=== PATIENT | male | born 1945 | race Caucasian/White ===

== ENCOUNTER → 2016-06-20 | Outpatient (REF) ==
[~2016-06-20] MED LIST: ADVAIR 250/28 DISKU1 IH; ADVAIR IH; AK-TRACIN500 U/GM OP; ALBUTEROL0.09 MG/A1 IH; AMILORIDE HCL/H1 TAB PO; AMITRIPTYLINE50 MG PO; CIPRO 500MG TA500 MG PO; DICLOFENAC PO; DYAZIDE 25 MG-31 CAP PO; FLEXERIL10 MG PO; FLOMAX 0.40.4 MG/CAP PO; FLOMAX0.4 MG PO; GABAPENTIN300 MG PO; HORIZANT600 MG PO; LEXAPRO10 MG PO; LORTAB 10/500 51 TAB PO; LORTAB 7.5/5001 TAB; NEURONTIN100 MG/CAP; PERCOCET 500 MG1 TAB PO; PLAVIX 75MG TAB75 MG PO; PYRIDIUM 100MG100 MG PO; QUESTRAN LI4 GM/5 GM PO; REQUIP 0.5MG0.5 MG PO; RESTORIL15 MG PO; SINGULAIR PO; sleeping pill
== END ==
LOC: ZLAB.WCH 18:42
DX: Z01.89 Encounter for other specified special examinations (principal)

== ENCOUNTER → 2016-07-06 | Outpatient (REF) | LOC: ZLAB.WCH 09:17 | DX: Z01.89 Encounter for other specified special examinations (principal) ==

== ENCOUNTER → 2016-11-28 | Outpatient (REF) | LOC: ZLAB.WCH 19:44 | DX: Z01.89 Encounter for other specified special examinations (principal) ==

== ENCOUNTER → 2017-03-31 | Outpatient (REF) ==
[2017-03-31 19:00] LABS: THYROID STIMULATING HORMONE 2.89 uIU/mL (0.465-4.680)
== END ==
LOC: ZLAB.WCH 18:11
PROVIDERS: Internal Medicine
DX: Z01.89 Encounter for other specified special examinations (principal)

== ENCOUNTER → 2017-07-08 | Outpatient (REF) | LOC: ZLAB.WCH 12:49 | DX: Z01.89 Encounter for other specified special examinations (principal) ==

== ENCOUNTER → 2017-12-08 | Outpatient (REF) | LOC: ZLAB.WCH 16:31 | DX: Z01.89 Encounter for other specified special examinations (principal) ==

== ENCOUNTER → 2017-12-21 | Outpatient (REF) | LOC: ZLAB.WCH 18:47 | DX: Z01.89 Encounter for other specified special examinations (principal) ==

== ENCOUNTER → 2018-01-11 | Outpatient (REF) | LOC: ZLAB.WCH 18:03 | DX: Z01.89 Encounter for other specified special examinations (principal) ==

== ENCOUNTER → 2018-02-02 | Outpatient (REF) | LOC: ZLAB.WCH 15:48 | DX: Z01.89 Encounter for other specified special examinations (principal) ==

== ENCOUNTER → 2018-02-15 | Outpatient (REF) | LOC: ZLAB.WCH 19:48 | DX: Z01.89 Encounter for other specified special examinations (principal) ==

== ENCOUNTER → 2018-04-12 | Outpatient (REF) | LOC: ZLAB.WCH 16:18 | DX: Z01.89 Encounter for other specified special examinations (principal) ==

== ENCOUNTER → 2018-04-27 | Outpatient (CLI) | payer MEDICARE | LOC: COL.VAS 13:37 | DX: M79.604 Pain in right leg (principal) ==

== ENCOUNTER → 2020-03-31 | Outpatient (REF) ==
[~2020-03-31] MED LIST changes: +AMILORIDE/HCTZ1 TAB PO; +ASPIRIN E.C. 8181 MG PO; +COLESTID 1GM1 G PO; +LIPITOR20 MG PO; +LOPRESSOR 225 MG/TAB PO; +NEURONTIN300 MG/CAP PO; +NORCO 325 MG-101 TAB PO; +PROAIR HFA0.09 MG/AC IH; +VALIUM 2MG T2 MG/TAB PO
== END ==
LOC: COL.CARD 08:23
DX: Z01.810 Encounter for preprocedural cardiovascular examination (principal)

== ENCOUNTER 2023-05-04 13:00 | Outpatient (RCR) | payer MEDICARE | END 2023-05-07 | disposition home or self-care (01) | LOC: MKS.ESL.PT | DX: M47.812 Spondylosis without myelopathy or radiculopathy, cervical region (principal); M25.512 Pain in left shoulder; R53.1 Weakness ==